=== PATIENT | female | born 1995 | race Caucasian/White ===

== ENCOUNTER 2017-03-21 03:10 | Inpatient (IN) | payer OTHER ==
[~2017-03-21] VITALS: Ht 157.5 cm; Wt 61.4 kg
[2017-03-21] MEDS ORDERED: ONDANSETRON INJ 2 MG/ML 2 ML VIAL IV STA (03:47)
[2017-03-21] MEDS ORDERED: MoRPHine SULFATE 4 MG/ML 1 ML CARP\\VIAL IV STA ×2 (03:47→04:39)
[2017-03-21] MEDS ORDERED: SODIUM CHLORIDE 0.9% 1000ML 1,000 ML IV STA (03:47)
[2017-03-21] MEDS ORDERED: OPTIRAY 320 IV PRN (04:00)
[2017-03-21 04:25] LABS: BLOOD UREA NITROGEN 9 mg/dl (7-18); BUN/CREATININE RATIO 14.7 (10-20); CARBON DIOXIDE 26 mmol/L (21-32); CHLORIDE 106 mmol/L (98-107); CREATININE 0.58 mg/dl (0.60-1.20); GLUCOSE 66 mg/dl (70-99); POTASSIUM 3.6 mmol/L (3.5-5.1); SODIUM 141 mmol/L (136-145)
[2017-03-21 04:27] LABS: BASO % 0.2 %; BASO ABS # 0.02 K/uL (0-0.2); COMPLETE YES; EOS % 2.5 %; HEMATOCRIT 41.5 % (37-47); IG% 1.2 %; LYMPH ABS # 2.78 K/uL (1.2-3.4); MEAN CELL VOLUME 90.6 fL (80-100); MEAN CORPUSCULAR HEMOGLOBIN 31.7 pg (25-34); MEAN CORPUSCULAR HGB CONC 34.9 g/dl (32-36); MEAN PLATELET VOLUME 9.8 fL (7.4-10.4); MONO % 6.9 %; NEUT % 61.2 %; PLATELET COUNT 290 K/uL (130-400); RED BLOOD COUNT 4.58 M/uL (4.2-5.4); WHITE BLOOD COUNT 9.93 K/uL (4.8-10.8)
[2017-03-21 04:28] LABS: CALCIUM 9.6 mg/dl (8.5-10.1)
[2017-03-21 04:30] LABS: PREG INTERNAL NEGATIVE QC NEG CLEAR BACKGROUND; PREG INTERNAL POSITIVE QC POS CONTROL LINE
[2017-03-21] MEDS ORDERED: DIVA500T59 PO (05:13)
[2017-03-21] MEDS ORDERED: SERT1TAB72 PO (05:17)
[2017-03-21] MEDS ORDERED: FRCT/ PO (05:18)
[2017-03-21] MEDS ORDERED: PROC1TAB5 PO (05:19)
[2017-03-21] MEDS ORDERED: DXM/4 PO (05:20)
[2017-03-21] MEDS ORDERED: ATV/1 PO (05:21)
[2017-03-21] MEDS ORDERED: HYDROmorphone INJ 0.5 MG/0.5 ML SYR IV STA (05:46)
[2017-03-21] MEDS ORDERED: KETOROLAC TROMETHAMINE 30 MG/ML VIAL IV STA (05:46)
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
[2017-03-21] MEDS ORDERED: NURSING VERBAL MED ORDER ONE (06:00)
[2017-03-21 07:00] VITALS: BP 103/69; PULSE 85; TEMP 36.6; O2SAT 94
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
[2017-03-21] MEDS: SODIUM CHLORIDE 0.9% 1000ML 1,000 ML IV SCH ×2 (07:11→19:17)
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
[2017-03-21 07:15] VITALS: O2SAT 94; Ht 157.5 cm; Wt 61.4 kg
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
[2017-03-21] MEDS ORDERED: HYDROmorphone INJ 1 MG/ML SYR IV PRN (07:45)
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
[2017-03-21] MEDS: HYDROCODONE/ACETAMI 10/325 TAB PO PRN ×2 (08:16→14:20)
--- NOTE | 2017-03-21 11:55 | History and Physical ---
History & Physical Date Mar 21, 2017. Chief Complaint back pain History of Present Illness The patient is a 21 year old female with complaints of upper thoracic Past Medical/Surgical History no htn, copd, cancer Additional History Hepatic Disease: No Endocrine Disorder: No Kidney Disease: No Hypertension: No Heart Disease: No Bleeding Tendencies: No Infectious Diseases: No Allergies Coded Allergies: No Known Allergies (Unverified , 03/21/17) Home Medications Scheduled Divalproex Sodium (Depakote), 500 MG PO DAILY Sertraline Hcl (Zoloft), Unknown Dose PO DAILY Scheduled PRN Acetamin/Butalbital/Caffeine (Fioricet), 1 TAB PO PRN/UD PRN for Migraine Dexamethasone (Decadron), 4 TAB PO DAILY PRN for Migraine Lorazepam (Ativan), 1 MG PO BID PRN for Anxiety Prochlorperazine Maleate (Compazine), 10 MG PO Q6H PRN for Nausea or Vomiting Physical Examination Skin: warm/dry Eyes: normal inspection ENT: normal ENT inspection Head: normocephalic Neck: supple Respiratory/Chest: lungs clear Cardiovascular: regular rate, rhythm Abdomen / GI: normal bowel sounds Back: + pertinent finding (severe upper thoracic back pain and loss of motion) Extremities: normal inspection, normal range of motion Neurologic/Psych: no motor/sensory deficits, alert, normal reflexes, oriented x 3 Diagnosis Multiple upper thoracic compression fractures ASA Classification: ASA Class I Plan of Treatment Admit for pain control and brace. May eat. None surgical problem. Fit for brace, home on Saturday
[2017-03-21] MEDS: KETOROLAC TROMETHAMINE 30 MG/ML VIAL IV SCH ×2 (12:04→17:50)
[2017-03-21 15:46] VITALS: BP 106/66; PULSE 74; TEMP 37.2; O2SAT 97
[2017-03-21 19:10] VITALS: BP 116/66; PULSE 70; TEMP 36.9; O2SAT 99
[2017-03-21 23:53] VITALS: BP 115/65; PULSE 63; TEMP 37.1; O2SAT 98
[2017-03-22] MEDS: HYDROCODONE/ACETAMI 10/325 TAB PO PRN ×4 (00:06→20:12)
[2017-03-22] MEDS: KETOROLAC TROMETHAMINE 30 MG/ML VIAL IV SCH ×4 (00:09→18:21)
[2017-03-22 07:22] VITALS: BP 121/74; PULSE 73; TEMP 36.8; O2SAT 97
[2017-03-22] MEDS ORDERED: BISACODYL 5 MG TABEC PO PRN (07:30)
[2017-03-22] MEDS ORDERED: GABAPENTIN 100 MG CAP PO SCH (09:00)
[2017-03-22] MEDS: DOCUSATE SODIUM 100 MG CAP PO SCH ×2 (09:13→21:09)
[2017-03-22] MEDS ORDERED: DEXAMETHASONE INJ 6 MG in SYRINGE 0 ML IV SCH (12:00)
[2017-03-22 15:21] VITALS: BP 135/80; PULSE 67; TEMP 36.9; O2SAT 100
[2017-03-22 22:45] VITALS: BP 114/70; PULSE 70; TEMP 37.1; O2SAT 99
[2017-03-23] MEDS: KETOROLAC TROMETHAMINE 30 MG/ML VIAL IV SCH ×2 (01:58→06:26)
[2017-03-23] MEDS: HYDROCODONE/ACETAMI 10/325 TAB PO PRN ×2 (03:23→09:24)
[2017-03-23 07:14] VITALS: BP 119/76; PULSE 68; TEMP 36.9; O2SAT 97
[2017-03-23] MEDS: DOCUSATE SODIUM 100 MG CAP PO SCH (08:29)
[2017-03-23] MEDS ORDERED: HYDR-5688 PO (09:43)
[2017-03-23] MEDS ORDERED: KETO10TA PO (09:43)
--- NOTE | 2017-03-23 09:44 | Discharge Instructions ---
Discharge Instructions Date of Service Mar 23, 2017. Admission Reason for Admission: Compression Fracture Discharge Discharge Diagnosis / Problem: SAME ABOVE Discharge Goals Goal(s): Decrease discomfort, Improve function Activity Recommendations Activity Limitations: as noted below Lifting Limitations: gradually increase as tolerated Exercise/Sports Limitations: until after follow-up appointment Shower/Bathe: no limitations Driving or Machine Use: no limitations . Instructions / Follow-Up Instructions / Follow-Up MEDICATIONS: Please take your prescriptions as instructed at your pre-op appointment. SPECIAL CARE: The following information is intended to answer some of the common questions and concerns regarding your surgery. Each patient is an individual and receives individual counselling throughout the course of treatment, from diagnosis to surgery all the way through recovery. What follows is not an exhaustive list, but should be a useful guide to some of the common questions and concerns patients have regarding their surgeries. These are not provided to keep you from calling us; rather, they give you something accurate and concrete to reference as you recover from your procedure. If you need us, we are available to you. As always, if you are not sure about something, call us at [phone]. MEDICAL EMERGENCIES: For these conditions, call 911 or go to your local hospital-based Emergency Department - not [facility] or equivalent. * Paralysis * Severe chest pain or difficulty breathing * Swelling or redness of either leg Spine procedures can be rather complex and though complications are rare, they do occur. In such cases, effective advice regarding emergency situations cannot always be addressed over the telephone. You may be referred to the emergency department for more effective management of your problem. Activity Limitations: It is important to give your body time to heal, so please limit your activities : * In general, don't do anything that moves your spine too much. You should avoid contact sports, twisting or heavy lifting while you recover. * 5-10 pounds is all you should attempt to lift. * You should not plan on driving for approximately 3 weeks and you should avoid traveling more than 30-45 minutes at a time. Longer trips should be broken down with walking breaks spaced appropriately. * Physical therapy is not usually required. * Walking and good posture practices will help you recover and regain your function. * Avoid straining or sudden changes in position. * In general, the goal is to take it easy and recover. Don't cause any new problems. Just relax. Showers: * Do not take a bath, use a Jacuzzi or hot tub or otherwise submerge your incision. * It is usually safe to take a shower 4-5 days after your surgery. * Your incision does not require any special creams or ointments. * Simply clean it with soap and water, dry and re-dress with a clean bandage afterwards. Incision: * Keep incision clean, dry and protected until your first follow-up appointment. * Some amount of drainage and redness is normal. Any drainage should be fairly clear and not have a foul odor. * If you feel anything is wrong or you have excessive drainage, please call us. * Your stitches and veronica will be removed 10-14 days after your surgery. At the time of your first post-op visit. * Neck surgeries are typically closed with a suture underneath the skin. The steri-strips over the incision should be maintained until we see you in the office. Bracing: * You may be provided with a back or neck brace to encourage good posture and prevent injury. It will remind you not to do too much as you heal and will alert others to the fact that you have had a surgery. * Back braces may be removed for showers and when you are resting at home. They must be worn when you are walking around for any period of time or for travel. * For neck surgery, you will likely be provided with two cervical collars. The soft collar ([place] or foam rubber) is worn most commonly throughout the day and while sleeping. The plastic collar (provided at the hospital) is for showering/bathing. * Except while eating, collars should remain in place. More specifically, bracing is provided for a purpose and should be worn. * Please obtain your brace or collars prior to your operation and bring them to the hospital with you on the day of surgery. * You should also bring your collars to your post-op appointment with Dr. Elder. You should always take good care of your body and practice healthy habits, especially following surgery. You should: * Follow your doctor's treatment plan * Sit and stand properly with good posture (ears over shoulders, shoulders over hips) Don't slouch * Learn to lift correctly * Exercise regularly (low-impact aerobic exercise is especially good, but check with your doctor first) * Generally, be up and walking for 5-10 minutes at a time at least 3-4 times per day from the day you get home * Increasing walking to tolerance until you can walk for 20-30 minutes at a time * Attain and maintain a healthy body weight * Eat healthy foods ( a well-balanced, low-fat diet rich in fruits and vegetables) and get enough calcium * Avoid excessive use of alcohol When to call our office - If you notice any of the following: * Increased pain not relieve by pain medicine * Fevers greater then 100 degrees F, chills or flu symptoms * Increased redness around incision * Drainage from the incision that is not clear * Any foul smelling drainage * Swelling or fluid collection beneath the skin Miscellaneous: * In the hospital, you may be given a walker or cane for support while walking. These are temporary needs and are intended to prevent injuries due to falls. You may discontinue them when you feel strong and steady enough on your feet. * Sleep in a comfortable position. We find that many patients find a lounge chair or recliner with several pillows to be beneficial in the early post-operative period. * The support stockings should be used for 7-10 days and may be discontinued when you are back to walking more and conducting usual household activities. No problem is insignificant. We are here to help you and get you well. Contact us at [phone]. Definitions: Foraminotomy: If part of the disc or a bone spur (osteophyte) is pressing on a nerve as it leaves the vertebra (through an exit called the foramen), a foraminotomy may be done. Otomy means "to make an opening." A foraminotomy is making the opening of the foramen larger, so the nerve can exit without being compressed. Laminotomy: Similar to the foraminotomy, a laminotomy makes a larger opening, this time in your bony plate protecting your spinal canal and spinal cord (the lamina). The lamina may be pressing on your nerve, so the surgeon may make more room for the nerves using a laminotomy. Laminectomy: Sometimes, a laminotomy is not sufficient. The surgeon may need to remove all or part of the lamina. This procedure is called a laminectomy. This can often be done at many levels without any harmful effects. Current Hospital Diet Patient's current hospital diet: Regular Diet Discharge Diet Recommended Diet: Regular Diet Pending Studies Studies pending at discharge: no Medical Emergencies . Who to Call and When: Medical Emergencies: If at any time you feel your situation is an emergency, please call 911 immediately. . Non-Emergent Contact Non-Emergency issues call your: Primary Care Provider . "Provider Documentation" section prepared by Cipriano Woods. . VTE Core Measure Inpt VTE Proph given/why not?: Treatment not indicated
[2017-03-23 10:32] VITALS: BP 119/76; PULSE 68; TEMP 36.9; O2SAT 97
--- NOTE | 2017-03-26 09:31 | History and Physical ---
History & Physical Date Mar 26, 2017. Chief Complaint Thoracic back pain History of Present Illness The patient is a 21 year old female with complaints of thoracic back pain Past Medical/Surgical History Negative Allergies Coded Allergies: No Known Allergies (Unverified , 03/21/17) Home Medications Scheduled Divalproex Sodium (Depakote), 500 MG PO DAILY Sertraline Hcl (Zoloft), Unknown Dose PO DAILY Scheduled PRN Acetamin/Butalbital/Caffeine (Fioricet), 1 TAB PO PRN/UD PRN for Migraine Dexamethasone (Decadron), 4 TAB PO DAILY PRN for Migraine Hydrocodone/Acetaminophen 5MG/325MG ([place] 5MG/325MG), 1 TABLET PO Q6H PRN for Pain Ketorolac Tromethamine (Toradol), 10 MG PO TID PRN for Pain Lorazepam (Ativan), 1 MG PO BID PRN for Anxiety Prochlorperazine Maleate (Compazine), 10 MG PO Q6H PRN for Nausea or Vomiting Physical Examination Skin: warm/dry Eyes: normal inspection ENT: normal ENT inspection Neck: trachea midline Respiratory/Chest: no respiratory distress Cardiovascular: regular rate, rhythm Abdomen / GI: normal bowel sounds Extremities: normal inspection Neurologic/Psych: no motor/sensory deficits Addiitonal Comments: Patient had significant back pain the upper thoracic area there is no break in the skin there is no warmth erythema edema was appropriate and that there was no excessive kyphosis. Her pain was consistent with her compression fractures albeit mild in the upper thoracic area Diagnosis Mild endplate compression fractures T3-T4 T5-T6 and T7 ASA Classification: ASA Class I Plan of Treatment We'll be admitted to my service for pain control will get her fitted for a back brace as well more likely a [place] hyperextension brace are discharged home in 24-48 hours
--- NOTE | 2017-03-26 09:32 | Discharge Summary ---
Orthopedic Discharge Summary Admission Date/Reason Mar 21, 2017 at 05:57 Compression Fracture. Discharge Date/Disposition Mar 23, 2017 Home Diagnosis Principal Diagnosis: Mild endplate compression fractures T3-T4 T5-T6 and T7 Procedure(s) Performed Back brace fitting Vaccinations None Consultations None Admission Physical Exam As per Admitting History & Physical. Discharge Instructions Please refer to the electronic Patient Visit Report (Discharge Instructions) for additional information.
== END 2017-03-23 11:15 | disposition home or self-care (01) | DRG 552 ==
LOC: C.EDA 03:31 → C.3E 05:57 → ENRESERV 06:14
PROVIDERS: ADMIT Orthopaedic Surgery Orthopaedic Surgery of the Spine; ATTEND Orthopaedic Surgery Orthopaedic Surgery of the Spine
DX: S22.058A Other fracture of T5-T6 vertebra, initial encounter for closed fracture (principal); S22.068A Other fracture of T7-T8 thoracic vertebra, initial encounter for closed fracture; S22.048A Other fracture of fourth thoracic vertebra, initial encounter for closed fracture; S22.038A Other fracture of third thoracic vertebra, initial encounter for closed fracture; R07.89 Other chest pain; V48.5XXA Car driver injured in noncollision transport accident in traffic accident, initial encounter